=== PATIENT | female | born 1955 | race Caucasian/White ===

== ENCOUNTER → 2023-06-12 12:52 | Day surgery (SDC) | payer MEDICARE, SELFPAY ==
--- NOTE | ~2023-06-12 | IR_ITS ---
PROCEDURE: VenaSeal ablation left GSV Preprocedure diagnosis: Varicose veins Postprocedure diagnosis: Same History/indications: Symptomatic varicose veins bilaterally lower extremities. Symptoms include heaviness, aching, edema and active ulceration on the lower portion Anesthesia: 1% lidocaine Procedure details: The patient was placed supine on the procedure table. A preliminary ultrasound was performed which demonstrated dilated greater saphenous vein (GSV). A site was marked on the left medial leg below the knee. The left leg was sterily prepped and draped. 1% lidocaine was administered for local anesthesia. A puncture was made into the GSV below the knee with a 21 gauge micropuncture needle under continuous ultrasound guidance with permanent recordings and direct visualization of the needle entry into the vein lumen. The needle was exchanged for a coaxial dilator over a 0.018 guidewire. The inner dilator and 0.018 guidewire were removed and a 0.035 guidewire was advanced to the saphenofemoral junction (SFJ). The outer dilator was then exchanged for the 4 Fr VenaSeal catheter which was positioned approximately 10 cm from the SFJ. At this point the glue was delivered along the length of the GSV in aliquots while retracting the catheter/delivery device and applying forward compression. Total delivery length was 30 cm. The catheter/delivery device was removed and hemostasis was achieved with manual compression. A sterile dressing was applied. The patient tolerated the procedure well. EBL: Less than 5 mL Complications: None immediately IR/IR venaseal vein closure IMPRESSION: VenaSeal ablation left GSV Plan: Follow-up ultrasound 5-7 days. Anticipate evaluation and possible intervention of symptomatic right lower extremity varicose veins
== END ==
PROVIDERS: PCP Internal Medicine; Visit Provider Student in an Organized Health Care Education/Training Program
DX: I83.893 Varicose veins of bilateral lower extremities with other complications (principal); L97.228 Non-pressure chronic ulcer of left calf with other specified severity
CPT/HCPCS: 36482

== ENCOUNTER → 2023-06-12 12:56 | Outpatient (BNV) | payer MEDICARE, SELFPAY | PROVIDERS: PCP Internal Medicine; Visit Provider Student in an Organized Health Care Education/Training Program | DX: I83.028 Varicose veins of left lower extremity with ulcer other part of lower leg (principal) | CPT/HCPCS: 36482 ==